=== PATIENT | male | born 1955 | race Two or more races ===

== ENCOUNTER 2017-06-15 01:47 | Emergency (ER) | payer OTHER ==
[~2017-06-15] VITALS: Ht 180.3 cm; Wt 98.9 kg
[2017-06-15 03:24] VITALS: BP 137/89
== END 2017-06-15 03:24 | disposition home or self-care (01) ==
LOC: ED 01:47
DX: K29.70 Gastritis, unspecified, without bleeding (principal); I10 Essential (primary) hypertension

== ENCOUNTER 2020-12-24 02:41 | Inpatient (IN) | payer OTHER ==
[~2020-12-24] VITALS: Ht 180.3 cm; Wt 95.3 kg
[2020-12-24 02:42] VITALS: Ht 180.3 cm; Wt 95.3 kg
[2020-12-24 03:16] LABS: microscopic required? NO
[2020-12-24 03:29] LABS: BASOPHIL % 0.7 % (0.2-1.5); PLATELET COUNT 286 x10^3mcL (152-348)
[2020-12-24 03:44] LABS: RED CELL DISTRIBUTION WIDTH 15.8 % (12.1-16.2); rbc morphology (normal/abnorm) NORMAL (NORMAL)
[2020-12-24 04:07] LABS: CALCIUM 8.9 mg/dL (8.5-10.1); CHLORIDE SERUM 104 mmol/L (98-107); GFR1 > 60 mL/min; GLUCOSE SERUM 110 mg/dL (74-106); POTASSIUM SERUM 3.3 mmol/L (3.5-5.1); SODIUM SERUM 140 mmol/L (136-145)
[2020-12-24 04:11] LABS: ALKALINE PHOSPHATASE 56 U/L (46-116); ALT/SGPT 31 U/L (16-63); AST/SGOT 16 U/L (15-37); BILIRUBIN TOTAL 0.26 mg/dL (0.20-1.00); TOTAL PROTEIN, SERUM 7.6 g/dL (6.4-8.2)
[2020-12-24 04:29] LABS: urine erythrocyte NEGATIVE (NEGATIVE)
[2020-12-24 04:32] LABS: ALBUMIN 3.3 g/dL (3.4-5.0)
[2020-12-24] MEDS ORDERED: AMLODIPINE BESY10 M2 PO (06:18)
[2020-12-24 09:37] LABS: MAGNESIUM 2.2 mg/dL (1.8-2.4); PHOSPHOROUS 3.8 mg/dL (2.5-4.9)
[2020-12-24 11:37] VITALS: BP 136/99
[2020-12-24] MEDS ORDERED: ATORVASTATIN CA40 M1 PO (15:07)
[2020-12-24] MEDS ORDERED: BAYER ASPIRIN R81 MG PO (15:08)
== END 2020-12-24 15:08 | disposition home or self-care (01) | DRG 45 ==
LOC: ED 02:41 → DU 04:49
PROVIDERS: Emergency Medicine; ADMIT Family Medicine; ATTEND Family Medicine
DX: I63.9 Cerebral infarction, unspecified (principal); G81.94 Hemiplegia, unspecified affecting left nondominant side; I10 Essential (primary) hypertension; G90.9 Disorder of the autonomic nervous system, unspecified; E87.6 Hypokalemia; N40.0 Benign prostatic hyperplasia without lower urinary tract symptoms; Z20.822 Contact with and (suspected) exposure to COVID-19; Z85.820 Personal history of malignant melanoma of skin
CPT/HCPCS: 82962; 97116-GP; G0378; J1644; Q9967